=== PATIENT | male | born 1990 | race Two or more races ===

== ENCOUNTER 2024-07-26 14:51 | Emergency (ER) | payer BC ==
[2024-07-26] MEDS: diphenhydrAMINE 50 MG/ML SDV IVPUSH ONE (15:16)
[2024-07-26] MEDS: Sodium Chloride 0.9% 10 ML Syringe FLUSH PRN (15:20)
== END 2024-07-26 16:30 | disposition home or self-care (01) ==
LOC: DL.ED 14:51
DX: T63.441A Toxic effect of venom of bees, accidental (unintentional), initial encounter (principal); Z91.030 Bee allergy status
CPT/HCPCS: 96374; 99282; 99283-25; J1200; J3490